=== PATIENT | female | born 1925 | race Caucasian/White ===

== ENCOUNTER 2017-03-19 03:26 | Inpatient (IN) | payer MEDICARE, BC ==
[~2017-03-19] VITALS: Ht 152.4 cm; Wt 62.7 kg
--- NOTE | 2017-03-20 01:20 | NUR ---
AT 2330 PT HAD TRIED FOR 30 MIN PER REQUEST, TO VOID IN [facility]SC WITH NO SUCCESS. PT REPORTS FEELING PRESSURE BUT UNABLE TO VOID. PT ASSISTED BACK TO BED AND BLADDER SCANNED, SCAN SHOWED 65-110 ML BUT PT CONTINUED TO REPORT PRESSURE. IT WAS NOTED THAT PT HAD NOT VOIDED SINCE BAEZ REMOVED AT 1130. PT I/O CATHED PER STERILE TECHNIQUE. 200 ML OF URINE DRAINED FROM BLADDER. PT TOLERATED PROCEDURE AND SLEPT THROUGH MOST OF THE PROCEDURE.
--- NOTE | 2017-03-22 15:18 | NUR ---
1339 - REPORT GIVEN TO DIOGO MA AT THE [facility] IN [place]. PT TO BE TRANSFERRED TO [facility] ROOM 106 OR 107 PER RN.
--- NOTE | 2017-03-22 15:19 | NUR ---
1415 - PT LEFT FLOOR VIA EMS WITHOUT S/S OF DISTRESS.
== END 2017-03-22 14:15 | DRG 536 ==
LOC: MED 03:26
PROVIDERS: ADMIT Internal Medicine
DX: S32.512A Fracture of superior rim of left pubis, initial encounter for closed fracture (principal); N18.4 Chronic kidney disease, stage 4 (severe); N17.9 Acute kidney failure, unspecified; D62 Acute posthemorrhagic anemia; S32.19XA Other fracture of sacrum, initial encounter for closed fracture; W19.XXXA Unspecified fall, initial encounter; Y92.008 Other place in unspecified non-institutional (private) residence as the place of occurrence of the external cause; R33.9 Retention of urine, unspecified; I12.9 Hypertensive chronic kidney disease with stage 1 through stage 4 chronic kidney disease, or unspecified chronic kidney disease; D69.6 Thrombocytopenia, unspecified; M79.672 Pain in left foot; D53.9 Nutritional anemia, unspecified; Z85.3 Personal history of malignant neoplasm of breast; Z88.5 Allergy status to narcotic agent; Z88.8 Allergy status to other drugs, medicaments and biological substances; Z90.49 Acquired absence of other specified parts of digestive tract; Z90.710 Acquired absence of both cervix and uterus; Z96.653 Presence of artificial knee joint, bilateral; Z90.12 Acquired absence of left breast and nipple; Z79.82 Long term (current) use of aspirin; Z79.899 Other long term (current) drug therapy; M19.90 Unspecified osteoarthritis, unspecified site
CPT/HCPCS: 97162-GP; 97166; J1650